=== PATIENT | male | born 1965 | race Caucasian/White ===

== ENCOUNTER 2019-09-18 20:27 | Observation (INO) | payer OTHER, MEDICAID, SELFPAY ==
[2019-09-18 20:30] VITALS: BP 140/91; PULSE 93; RESP 16; TEMP 36.7; O2SAT 99; BMI 21.2
--- NOTE | 2019-09-18 20:47 | DI.RAD.S_ITS ---
PROCEDURE: XR ACUTE ABDOMEN SERIES INDICATIONS: Abdominal pain TECHNIQUE: One view chest and two views of the abdomen were acquired. COMPARISON: None. FINDINGS: Surgical changes and devices: None. Chest: Patchy ill-defined retrocardiac opacity. Scattered scarring/atelectasis. Heart size is normal. No pleural effusions. No pneumoperitoneum. Abdomen: Bowel gas pattern is normal. No suspicious calcifications. Visualized solid organ contours appear normal. Bones: No suspicious bony lesions. IMPRESSION: Retrocardiac mild opacity, potentially aspiration versus pneumonia although technically age-indeterminate. If there is persistent clinical diagnostic uncertainty, continued surveillance with short interval chest radiographs after treatment is recommended. No bowel obstruction or free air Dictated by: Paolo Buitrago M.D. on 09/18/2019 at 21:45 Approved by: Paolo Buitrago M.D. on 09/18/2019 at 21:48
[2019-09-18] MEDS: ONDANSETRON 4 MG/2 ML INJ IV (20:59)
[2019-09-18] MEDS: PANTOPRAZOLE 40 MG VIAL IV (20:59)
[2019-09-18 21:37] LABS: INR 1.1 (0.9-1.3); Prothrombin Time 12.6 SECONDS (10.1-12.7)
[2019-09-18 21:38] LABS: Add Manual Diff / Slide Review NO; Basophils Absolute Auto 200 /uL (0-100); Basophils Percent Auto 2.5 % (0-2); Eosinophils Absolute Auto 0 /uL (0-450); Eosinophils Percent Auto 0.3 % (2-4); Hematocrit 45.6 % (41-53); Hemoglobin 15.9 g/dL (13.5-17.5); Lymphocytes Absolute Auto 700 /uL (1100-4500); Lymphocytes Percent Auto 7.9 % (25-40); Mean Corpuscular HGB Conc 34.9 % (30-36); Mean Corpuscular Volume 88.8 fL (80-100); Monocytes Absolute Auto 900 /uL (0-900); Monocytes Percent Auto 9.6 % (3-14); Neutrophils Absolute Auto 7400 /uL (1500-7000); Neutrophils Percent Auto 79.7 % (50-75); Platelet Count 209 X10^3/uL (150-400); Red Blood Cell Count 5.14 X10^6/uL (4.5-5.9); Red Cell Distribution Width 13.2 % (11.6-14.8); White Blood Cell Count 9.3 X10^3/uL (4.5-11.0)
[2019-09-18 21:40] LABS: PTT Partial Thromboplastin Tim 33 SECONDS (26.4-36.2)
[2019-09-18 21:42] LABS: Alanine Aminotransferase 29 IU/L (<50); Albumin 4.4 g/dL (3.5-5.0); Albumin Globulin Ratio 1.3 (1.0-2.8); Alkaline Phosphatase 87 U/L (38-126); Aspartate Aminotransferase 32 IU/L (17-59); BUN Creatinine Ratio 23.8 (6-22); Bilirubin Total 0.6 mg/dL (0.2-1.3); Blood Urea Nitrogen 19 mg/dL (9-20); Calcium 9.1 mg/dL (8.4-10.2); Carbon Dioxide 30 mmol/L (22-32); Chloride 97 mmol/L (98-107); Estimated Glomerular Filt Rate > 60.0 mL/min (>60); Globulin 3.5 g/dL (1.7-4.1); Glucose 136 mg/dL (70-100); HEMOLYSIS < 15 (0-50); Potassium 3.6 mmol/L (3.4-5.1); Sodium 138 mmol/L (137-145); Total Protein 7.9 g/dL (6.3-8.2)
--- NOTE | 2019-09-18 21:56 | ED_ITS ---
HPI - Nausea/Vomiting/Diarrhea General Chief complaint: Nausea/Vomiting/Diarrhea Stated complaint: dry heaves for days Time Seen by Provider: 09/18/19 20:30 Source: patient Mode of arrival: Ambulatory Limitations: no limitations History of Present Illness HPI Narrative: 54-year-old male smoker with extensive alcohol history presents with a chief complaint of some epigastric discomfort and persistent nausea and vomiting for the past 5 days or so. Additionally he has had dark and tarry stool. He denies any history of GI bleed and hasn't been drinking for the past 5 years. He denies the use of any blood thinners or even aspirin. He is not dizzy, weak or lightheaded. He denies any blood in his vomit. He denies any history of alcohol withdrawal or admissions for gastrointestinal bleed. He has never had or colonoscopy. MD complaint: nausea, vomiting and diarrhea Onset (ago): day(s) Description of Vomiting: food contents Description of Diarrhea: tarry Related Data Home Medications Medication Instructions Recorded Confirmed No Known Home Medications 09/18/19 09/18/19 Allergies Allergy/AdvReac Type Severity Reaction Status Date / Time No Known Drug Allergies Allergy Verified 04/28/19 14:28 Patient History Medical History (Updated 09/19/19 @ 01:56 by KAREEM King) Migraine headache (Acute) Surgical History No history of previous surgery (Acute) Family History (Updated 09/19/19 @ 01:52 by KAREEM King) Father Cancer Heart disease Mother Diabetes mellitus Social History household members: family Smoking Status: Former smoker alcohol intake: never Smoking Status: Current every day smoker Substance Use Type: does not use Exam Narrative Exam Narrative: GENERAL: [54] year old patient appears stated age. Well- nourished, well-developed patient, in mild distress. HEAD: Atraumatic. Normocephalic. EYES: Pupils equal round and reactive. Extraocular motions intact. No scleral icterus. No injection or drainage. ENT: Nose without bleeding, purulent drainage. Throat without erythema, tonsillar hypertrophy or exudate. Airway patent. NECK: Trachea midline. Non tender CARDIOVASCULAR: Regular rate and rhythm without murmurs, gallops, or rubs. RESPIRATORY: Clear to auscultation. Breath sounds equal bilaterally. No wheezes, rales, or rhonchi. GASTROINTESTINAL: Abdomen soft, mild epigastric tenderness, nondistended. RECTAL: No pain, heme+ EXTREMITIES: No edema or joint tenderness. BACK: Nontender without deformity or crepitance. No flank tenderness. NEURO: AOx3. SKIN: No rash or erythema of visible areas Initial Vital Signs Initial Vital Signs: Vital Signs Temperature 98.1 F 09/18/19 20:30 Pulse Rate 93 H 09/18/19 20:30 Respiratory Rate 16 09/18/19 20:30 Blood Pressure 140/91 H 09/18/19 20:30 Pulse Oximetry 99 09/18/19 20:30 Course Orders Ordered: ED Orders 09/18/19 20:47 XR acute abdomen series Stat 09/18/19 21:15 Complete Blood Count AUTO DIFF Stat Comprehensive Metabolic Panel Stat Lipase Stat Partial Thromboplastin Time Stat Prothrombin Time INR Stat Troponin & CK Cardiac Panel Stat Type and Screen Stat 09/18/19 22:19 EKG-12 Lead Stat Acetaminophen (Tylenol) 650 mg PO Q6HR PRN PRN Reason: Fever/Mild Pain (1-3) Last Admin: 09/19/19 00:36 Dose: 650 mg Documented by: GEORGETTE Sodium Chloride (Normal Saline 0.9%) 1,000 mls @ 150 mls/hr IV CONT BRITANY Last Admin: 09/19/19 00:34 Dose: 150 mls/hr Documented by: GEORGETTE Influenza Virus Vaccine (Flu Vaccine) 0.5 ml IM .ONCE ONE Stop: 09/19/19 09:01 Naloxone HCl (Narcan) 0.2 mg IV Q2MIN PRN PRN Reason: Opiate Reversal Ondansetron HCl (Zofran) 4 mg IV Q6HR [facility] Last Admin: 09/19/19 00:12 Dose: 4 mg Documented by: BRYANNA Pantoprazole Sodium (Protonix) 40 mg PO BID BRITANY Discontinued Medications Ondansetron HCl (Zofran) 4 mg IV NOW ONE Stop: 09/18/19 20:47 Last Admin: 09/18/19 20:59 Dose: 4 mg Documented by: GLADIS Pantoprazole Sodium (Protonix) 40 mg IV NOW ONE Stop: 09/18/19 20:47 Last Admin: 09/18/19 20:59 Dose: 40 mg Documented by: GLADIS Reevaluation(s) Reevaluation #1: patient feeling a bit better after the above stated therapies, but will need admission for further evaluation of upper GI bleed Consultations Consultation #1: Dr. Howard called to discuss his level of comfort given presumed upper source of bleeding. He is available in consult should hospitalist service wish it Consultation #2: hospitalist happy to accept Vital Signs Vital signs: Vital Signs - 8 hr 09/18/19 20:30 Temperature 98.1 F Pulse Rate 93 H Respiratory Rate 16 Blood Pressure 140/91 H Pulse Oximetry 99 MDM - Nausea/Vomiting/Diarrhea Lab Data Result diagrams: 09/18/19 21:15 09/18/19 21:15 Labs: Lab Results 09/18/19 09/18/19 09/18/19 Range/Units 21:15 21:15 21:15 WBC 9.3 (4.5-11.0) X10^3/uL RBC 5.14 (4.5-5.9) X10^6/uL Hgb 15.9 (13.5-17.5) g/dL Hct 45.6 (41-53) % MCV 88.8 (80-100) fL MCH 31.0 (26-34) PG MCHC 34.9 (30-36) % RDW 13.2 (11.6-14.8) % Plt Count 209 (150-400) X10^3/uL Neut % (Auto) 79.7 H (50-75) % Lymph % (Auto) 7.9 L (25-40) % [place] % (Auto) 9.6 (3-14) % Eos % (Auto) 0.3 L (2-4) % Baso % (Auto) 2.5 H (0-2) % Neut # (Auto) 7400 H (1286-5349) /uL Lymph # (Auto) 700 L (1855-5898) /uL [place] # (Auto) 900 (0-900) /uL Eos # (Auto) 0 (0-450) /uL Baso # (Auto) 200 H (0-100) /uL PT 12.6 (10.1-12.7) SECONDS INR 1.1 (0.9-1.3) APTT 33 (26.4-36.2) SECONDS Sodium 138 (137-145) mmol/L Potassium 3.6 (3.4-5.1) mmol/L Chloride 97 L (98-107) mmol/L Carbon Dioxide 30 (22-32) mmol/L BUN 19 (9-20) mg/dL Creatinine 0.80 (0.66-1.25) mg/dL Estimated GFR > 60.0 (>60) mL/min BUN/Creatinine Ratio 23.8 H (6-22) Glucose 136 H (70-100) mg/dL Calcium 9.1 (8.4-10.2) mg/dL Magnesium (1.6-2.3) mg/dL Total Bilirubin 0.6 (0.2-1.3) mg/dL AST 32 (17-59) IU/L ALT 29 (<50) IU/L Alkaline Phosphatase 87 (38-126) U/L Total Creatine Kinase (55-170) U/L CK-MB (CK-2) CK-MB (CK-2) Rel Index Troponin I (0.01-0.034) ng/mL Total Protein 7.9 (6.3-8.2) g/dL Albumin 4.4 (3.5-5.0) g/dL Globulin 3.5 (1.7-4.1) g/dL Albumin/Globulin Ratio 1.3 (1.0-2.8) Lipase (23-300) U/L Blood Type Antibody Screen 09/18/19 09/18/19 09/18/19 Range/Units 21:15 21:15 21:15 WBC (4.5-11.0) X10^3/uL RBC (4.5-5.9) X10^6/uL Hgb (13.5-17.5) g/dL Hct (41-53) % MCV (80-100) fL MCH (26-34) PG MCHC (30-36) % RDW (11.6-14.8) % Plt Count (150-400) X10^3/uL Neut % (Auto) (50-75) % Lymph % (Auto) (25-40) % [place] % (Auto) (3-14) % Eos % (Auto) (2-4) % Baso % (Auto) (0-2) % Neut # (Auto) (6612-1585) /uL Lymph # (Auto) (9728-3738) /uL [place] # (Auto) (0-900) /uL Eos # (Auto) (0-450) /uL Baso # (Auto) (0-100) /uL PT (10.1-12.7) SECONDS INR (0.9-1.3) APTT (26.4-36.2) SECONDS Sodium (137-145) mmol/L Potassium (3.4-5.1) mmol/L Chloride (98-107) mmol/L Carbon Dioxide (22-32) mmol/L BUN (9-20) mg/dL Creatinine (0.66-1.25) mg/dL Estimated GFR (>60) mL/min BUN/Creatinine Ratio (6-22) Glucose (70-100) mg/dL Calcium (8.4-10.2) mg/dL Magnesium (1.6-2.3) mg/dL Total Bilirubin (0.2-1.3) mg/dL AST (17-59) IU/L ALT (<50) IU/L Alkaline Phosphatase (38-126) U/L Total Creatine Kinase 50 L (55-170) U/L CK-MB (CK-2) TNP CK-MB (CK-2) Rel Index TNP Troponin I < 0.012 (0.01-0.034) ng/mL Total Protein (6.3-8.2) g/dL Albumin (3.5-5.0) g/dL Globulin (1.7-4.1) g/dL Albumin/Globulin Ratio (1.0-2.8) Lipase 59 (23-300) U/L Blood Type O Positive Antibody Screen Negative 09/18/19 Range/Units 21:15 WBC (4.5-11.0) X10^3/uL RBC (4.5-5.9) X10^6/uL Hgb (13.5-17.5) g/dL Hct (41-53) % MCV (80-100) fL MCH (26-34) PG MCHC (30-36) % RDW (11.6-14.8) % Plt Count (150-400) X10^3/uL Neut % (Auto) (50-75) % Lymph % (Auto) (25-40) % [place] % (Auto) (3-14) % Eos % (Auto) (2-4) % Baso % (Auto) (0-2) % Neut # (Auto) (4856-3870) /uL Lymph # (Auto) (8232-2467) /uL [place] # (Auto) (0-900) /uL Eos # (Auto) (0-450) /uL Baso # (Auto) (0-100) /uL PT (10.1-12.7) SECONDS INR (0.9-1.3) APTT (26.4-36.2) SECONDS Sodium (137-145) mmol/L Potassium (3.4-5.1) mmol/L Chloride (98-107) mmol/L Carbon Dioxide (22-32) mmol/L BUN (9-20) mg/dL Creatinine (0.66-1.25) mg/dL Estimated GFR (>60) mL/min BUN/Creatinine Ratio (6-22) Glucose (70-100) mg/dL Calcium (8.4-10.2) mg/dL Magnesium 2.6 H (1.6-2.3) mg/dL Total Bilirubin (0.2-1.3) mg/dL AST (17-59) IU/L ALT (<50) IU/L Alkaline Phosphatase (38-126) U/L Total Creatine Kinase (55-170) U/L CK-MB (CK-2) CK-MB (CK-2) Rel Index Troponin I (0.01-0.034) ng/mL Total Protein (6.3-8.2) g/dL Albumin (3.5-5.0) g/dL Globulin (1.7-4.1) g/dL Albumin/Globulin Ratio (1.0-2.8) Lipase (23-300) U/L Blood Type Antibody Screen Imaging Data Abdominal x-ray: Radiologist's Impression: [address] [address] XRay Report Signed Patient: Jas BentonKe#: [id number] : 1965Acct:[id number] Age/Sex: 54 / MDate of Service: 09/18/19 Loc: ED Accession Number: [id number] Procedure: XR acute abdomen series Ordering Provider: Eagle White D.O. PROCEDURE: XR ACUTE ABDOMEN SERIES INDICATIONS: Abdominal pain TECHNIQUE: One view chest and two views of the abdomen were acquired. COMPARISON: None. FINDINGS: Surgical changes and devices: None. Chest: Patchy ill-defined retrocardiac opacity. Scattered scarring/atelectasis. Heart size is normal. No pleural effusions. No pneumoperitoneum. Abdomen: Bowel gas pattern is normal. No suspicious calcifications. Visualized solid organ contours appear normal. Bones: No suspicious bony lesions. IMPRESSION: Retrocardiac mild opacity, potentially aspiration versus pneumonia although technically age-indeterminate. If there is persistent clinical diagnostic uncertainty, continued surveillance with short interval chest radiographs after treatment is recommended. No bowel obstruction or free air Dictated by: Paolo Buitrago M.D. on 09/18/2019 at 21:45 Approved by: Paolo Buitrago M.D. on 09/18/2019 at 21:48 Discharge Plan Departure Patient Disposition: Admitted As Inpatient Clinical Impression: GI bleed Qualifiers: GI bleed type/associated pathology: unspecified gastrointestinal hemorrhage type Qualified Code(s): K92.2 - Gastrointestinal hemorrhage, unspecified Discharge Date/Time: 09/19/19 00:20 Admit Date/Time: 09/18/19 22:54 Admit Provider: Brandon Lobo
[2019-09-18 22:31] LABS: Creatine Kinase 50 U/L (55-170)
[2019-09-18 22:42] LABS: Troponin I < 0.012 ng/mL (0.01-0.034)
[2019-09-18 23:06] LABS: Lipase 59 U/L (23-300)
[2019-09-18 23:30] VITALS: BP 128/84; PULSE 88; RESP 12; O2SAT 96
[2019-09-18 23:37] VITALS: BP 128/84; PULSE 87; RESP 12; O2SAT 98
--- NOTE | 2019-09-18 23:53 | P.HP_ITS ---
History of Present Illness History of Present Illness Date Patient Seen: 09/18/19 Time Patient Seen: 23:09 Chief complaint: dry heaves for days Narrative: Mr. Jas Benton is a 54-year-old male patient with a remote history of high alcohol intake but no other current medical problems who presents to the ER with intractable nausea vomiting. The patient states his symptoms began 6 days ago with nausea vomiting, epigastric pain, fevers and chills. The patient's symptoms persisted developing melena for the last couple of days. He states he has been unable to keep any fluid or food down. He has associated headache, nasal congestion and reports sore throat. He has had no hematemesis or coffee-ground emesis does report having melanotic stools. He describes his pain as burning epigastrium without radiation at 4/10 that worsens to 7/10 with vomiting. He describes symptoms worsening when he lays flat and what sounds to be possible esophageal spasms. The patient indicates his brothers are also ill with similar symptoms. The patient denies chest pain or palpitations and has no shortness of breath cough or wheezing. He reports no diarrhea but has not eaten much and has small black stools. Reports no urinary symptoms and has nocturia approximately 1 time nightly. He is fully independent in his ADLs requires no assistive devices. Upon arrival to the ER the patient has a temperature of 98.1?, heart rate 93, blood pressure 140/91, respirations 16 saturating 99% on room air. A chest x- ray is obtained which did advise retrocardiac mild opacity is questionable for pneumonia versus possible aspiration. On laboratory analysis the patient has a normal white count at 9.3, hemoglobin of 15.9, hematocrit of 45.6 and platelets 209. He has an MCV of 88. On coagulation has a PT of 12.6 with an INR 1.1 and PTT of 33. His chemistries revealed normal electrolytes with a BUN of 19 and creatinine of 0.8. His magnesium is 2.6. He has a bilirubin of 0.6, AST of 32, ALT of 29 and alkaline phosphatase of 87. His nonfasting glucose is 136. He has negative troponin at less than 0.012. A type and screen is obtained. Dr. Howard is contacted through the ER and has agreed to consult. The patient is admitted to the medicine service for intractable nausea vomiting with likely gastritis and gastrointestinal bleeding. Patient History Medical History (Updated 09/19/19 @ 01:56 by KAREEM King) Migraine headache (Acute) Surgical History No history of previous surgery (Acute) Family & Social History Family History (Updated 09/19/19 @ 01:52 by KAREEM King) Father Cancer Heart disease Mother Diabetes mellitus Safety & Behavioral: Feels Safe in Current Yes Environment Been Physically Hurt or No Threatened By a Person Tobacco & Substance use: Smoking Status Current every day smoker Substance Use Type does not use Comment: The patient is single and lives in a single family home. He reports that his father just recently passed related to heart disease has a history of prostate cancer. His mother has a history of diabetes. He has 3 brothers and 2 sisters all of whom he describes is in good health. Occupation: Patient works with horses. Smoking: Patient states he quit smoking 5 years ago before which he smoked 1 pack per day. Alcohol: Patient reports high alcohol intake with over a 6 pack per day in the past quitting 5 years ago. Substance use: Patient denies using recreational pharmaceuticals, herbal or cannabis products. Advanced directives: The patient states iron to be FULL CODE. He designates his younger brother Yamileth Benton to be his surrogate decision maker. Meds Home Medications and Allergies Home Medications Medication Instructions Recorded Confirmed Type No Known Home Medications 09/18/19 09/18/19 History Allergies Allergy/AdvReac Type Severity Reaction Status Date / Time No Known Drug Allergies Allergy Verified 04/28/19 14:28 Review of Systems Review of Systems Narrative: All systems are reviewed and are unremarkable except those noted in the HPI above. Exam Vital Signs (past 8 hours): - 09/18/19 20:30 09/18/19 23:30 09/18/19 23:37 Temperature 98.1 F Pulse Rate 93 H 88 87 Respiratory Rate 16 12 12 Blood Pressure 140/91 H Blood Pressure [Left Arm] 128/84 Blood Pressure [Right Arm] 128/84 Pulse Oximetry 99 96 98 Oxygen Delivery Method Room Air Narrative Exam Narrative: GENERAL APPEARANCE: well developed, adequately nourished somewhat unkempt male mildly uncomfortable appearing. HEENT: Normocephalic, PERRLA, conjunctiva clear, EOMs intact without nystagmus, slight sinus tenderness to percussion, no rhinorrhea, mucous membranes are dry and pink without lesions or exudate. NECK/THYROID: neck supple, no JVD, no carotid bruit, no thyromegaly, trachea midline. LYMPH NODES: no cervical or supraclavicular lymphadenopathy. SKIN: [place], warm and dry, no visible lesions, rashes, ulcerations or petechiae. HEART: regular rate and rhythm, S1-S2, faint murmur left midsternal border, no rubs or gallops, brisk capillary refill, no edema LUNGS: clear to auscultation bilaterally, no coarseness crackles or wheezing, no cough present CHEST: Symmetrical movement, no accessory muscle use, good tidal volume. ABDOMEN: Soft, no distention, attempting to progression bilateral upper quadrants, epigastric abdominal tenderness, no guarding or peritoneal signs, no organomegaly, no flank or suprapubic tenderness, active bowel tones. BACK: Normal curvature, nontender to palpation, no CVA tenderness on percussion EXTREMITIES: moves all extremities, strength is 5/5 and symmetrical, no deformities or joint effusions. NEUROLOGIC: AAO x4, no focal neurologic deficits, cranial nerves II-XII grossly intact, sensation intact to light touch, hearing grossly normal to speech. PSYCH: Mildly anxious, cooperative, congruent mood and affect. Objective Labs Result Diagrams: 09/18/19 21:15 09/18/19 21:15 Labs: Laboratory Results - last 24 hr 09/18/19 09/18/19 09/18/19 21:15 21:15 21:15 WBC 9.3 RBC 5.14 Hgb 15.9 Hct 45.6 MCV 88.8 MCH 31.0 MCHC 34.9 RDW 13.2 Plt Count 209 Neut % (Auto) 79.7 H Lymph % (Auto) 7.9 L [place] % (Auto) 9.6 Eos % (Auto) 0.3 L Baso % (Auto) 2.5 H Neut # (Auto) 7400 H Lymph # (Auto) 700 L [place] # (Auto) 900 Eos # (Auto) 0 Baso # (Auto) 200 H PT 12.6 INR 1.1 APTT 33 Sodium 138 Potassium 3.6 Chloride 97 L Carbon Dioxide 30 BUN 19 Creatinine 0.80 Estimated GFR > 60.0 BUN/Creatinine Ratio 23.8 H Glucose 136 H Calcium 9.1 Total Bilirubin 0.6 AST 32 ALT 29 Alkaline Phosphatase 87 Total Creatine Kinase CK-MB (CK-2) CK-MB (CK-2) Rel Index Troponin I Total Protein 7.9 Albumin 4.4 Globulin 3.5 Albumin/Globulin Ratio 1.3 Lipase Blood Type Antibody Screen 09/18/19 09/18/19 09/18/19 21:15 21:15 21:15 WBC RBC Hgb Hct MCV MCH MCHC RDW Plt Count Neut % (Auto) Lymph % (Auto) [place] % (Auto) Eos % (Auto) Baso % (Auto) Neut # (Auto) Lymph # (Auto) [place] # (Auto) Eos # (Auto) Baso # (Auto) PT INR APTT Sodium Potassium Chloride Carbon Dioxide BUN Creatinine Estimated GFR BUN/Creatinine Ratio Glucose Calcium Total Bilirubin AST ALT Alkaline Phosphatase Total Creatine Kinase 50 L CK-MB (CK-2) TNP CK-MB (CK-2) Rel Index TNP Troponin I < 0.012 Total Protein Albumin Globulin Albumin/Globulin Ratio Lipase 59 Blood Type O Positive Antibody Screen Negative Assessment & Plan Assessment & Plan narrative: This is a 54-year-old male patient who was admitted to the hospital for intractable nausea vomiting, dehydration and GI bleeding. 1. Intractable nausea vomiting, acute, present on admission, active -patient with 6 days of nausea vomiting stating unable to keep food or water down. No hematemesis or coffee-ground emesis per patient report. -sick contacts in the family with brothers having similar symptoms. -bleed to be infectious etiology, respiratory panel will be obtained. -Zofran 4 mg every 6 hours as needed for nausea. -the patient given oral fluids in the ED resulting in nausea, NPO for now with sips and chips, advance diet to clear liquid diet in the morning. 2. Dehydration, acute, present on admission, active -the patient reports poor oral intake for the last 6 days. -patient appears hemoconcentrated with a hemoglobin of 15.9 hematocrit 45.6, BUN creatinine ratio is 23.8 consistent with dehydration. No evidence of acid-base derangement, anion gap is 11. -rehydrate with normal saline 150 cc/hour. -will follow chemistries and renal function. 3. Gastritis, acute, present on admission, active -patient complains of ongoing epigastric discomfort described as a burning with associated reflux symptoms including what sounds to be esophageal spasm. -no complaints of hematemesis or coffee-ground emesis, 2-3 days of melanotic stool. -symptoms are worse when lying down, will keep head of bed elevated 15?. -Protonix 40 mg IV twice daily. -Zofran as needed for nausea -NPO tonight will start clear liquid diet in the morning. 4. GI bleed with melanotic stool, acute, present on admission, active -patient reports melanotic stools for 2-3 days. Patient has heme-positive on rectal exam in the ER. -patient denies hematochezia or bright red blood per rectum. -hemoglobin is 15.9 and hematocrit is 45.6 with platelets of 209. BUN is normal at 0.6. MCV is 88. -prior history of heavy alcohol intake, quit 5 years ago per patient report. -he reports no previous GI bleed. He has never had colonoscopy or endoscopy. -Dr. Howard has agreed to consult and we appreciate his evaluation recommendations. 5. Migraine headache, acute, present on admission, active. -patient is requesting Excedrin for his headache. Will avoid aspirin and NSAIDs due to GI bleed. -ordered Tylenol for headache as needed. Will assess efficacy. VTE prophylaxis: Bilateral SCDs, no anticoagulation due to GI bleeding. Diet: NPO tonight, clear liquids in the morning will plan to advance as tolerated. IVF: normal saline 150 cc/hour. The patient is admitted to the hospital due to the severity of symptoms, risk of complications adverse events. The patient is admitted as observation with expected length of stay to be less than 2 midnights. Scores GCS Kelley coma scale eye opening: Spontaneous Kelley coma scale verbal response: Orientated [place] coma scale motor response: Obey commands [place] coma scale total score: 15
[2019-09-19] VITALS (12 sets, daily range): BP systolic 88–139; BP diastolic 63–84; PULSE 62–87; RESP 11–27; TEMP 36.6–37.8; O2SAT 91–99; BMI 21.2
--- NOTE | 2019-09-19 | PATH_ITS ---
[facility] Accession Number: [id number] . 01 Material submitted: . PART A: stomach - GASTRIC BIOPSIES PART B: esophagus - ESOPHAGEAL BIOPSIES . 02 Diagnosis: A. Stomach, Biopsies: Acute erosive gastritis. Negative for Helicobacter by immuohistochemistry. Negative for intestinal metaplasia. Negative for dysplasia and malignancy. . B. Esophagus, Biopsies: Ulcerated squamous mucosa. A PAS stain is negative for fungal organisms. Intraepithelial eosinophils are not increased. Negative for dysplasia and malignancy. V 09/22/2019 1449 Local . 02 Electronically signed: . Altagracia Mahmood MD, Pathologist NPI- [id number] . 01 Gross description: . Part A: GASTRIC BIOPSIES: Received in formalin are multiple fragment(s) of carlin, soft tissue measuring 0.6 x 0.3 x 0.1 cm in aggregate submitted entirely in 1 cassette(s) Part B: ESOPHAGEAL BIOPSIES: Received in formalin are multiple fragment(s) of carlin, soft tissue measuring 0.4 x 0.4 x 0.1 cm in aggregate submitted entirely in 1 cassette(s) /QBJ 09/20/2019 0558 Local . 02 Microscopic: . A. An immunohistochemical stain was performed to evaluate for Helicobacter organisms and is negative. The control stain showed appropriate reactivity. . B. An AB/PAS stain was performed to evaluate for fungal organisms and is negative. The control stain showed appropriate reactivity. . * This test was developed and its performance characteristics determined by [employer]. It has not been cleared or approved by the U.S. Food and Drug Administration. The FDA has determined that such clearance or approval is not necessary. This test is used for clinical purposes. It should not be regarded as investigational or for research. . 02 Pathologist provided ICD-10: K20.9, K25.9 . 02 CPT . 739743, 326293, 488555, B20891 Performed at: 01 [facility] [address] [id number] MD Julito Bagley MD Phone: [phone] Performed at: 02 [facility] [address] [place], [place] [id number] MD Altagracia Mahmood MD Phone: [phone]
[2019-09-19 00:06] LABS: Magnesium 2.6 mg/dL (1.6-2.3)
[2019-09-19] MEDS: ONDANSETRON 4 MG/2 ML INJ IV ×4 (00:12→22:47)
[2019-09-19] MEDS: SODIUM CHLORIDE 0.9% 1,000 ML 150 ML IV ×2 (00:34→03:23)
[2019-09-19] MEDS: ACETAMINOPHEN 325 MG TABLET 650 MG PO ×2 (00:36→12:03)
--- NOTE | 2019-09-19 01:10 | PC.ADMIT ---
[address] Admission Note: Pt arrived to unit at 1230 without issues. Pt has no complaints at this time. Reports after recieving the zofran he has not had anymore n/v. Alert and oriented x4. SBA to bed. Pt reports 1/3 headache pain. Tylenol given. Pt also requests excedrin. Temp 100.1, pt reports feeling fine. Tylenol given WCTM. Skin assessment done with DESIREE Bui. Pt reports not wanting to recieve blood products, will report this to Yamil SERNA. The patient,Jas Benton,54 y/o, was given written information regarding hospital policies, unit procedures and contact persons. Patient's smoking status: Former smoker. Vital Signs - 8 hr 09/18/19 20:30 09/18/19 23:30 09/18/19 23:37 Temperature 98.1 F Pulse Rate 93 H 88 87 Respiratory Rate 16 12 12 Blood Pressure 140/91 H Blood Pressure [Left Arm] 128/84 Blood Pressure [Right Arm] 128/84 Pulse Oximetry 99 96 98 09/19/19 00:30 Temperature 100.1 F H Pulse Rate 82 Respiratory Rate 18 Blood Pressure 130/77 Blood Pressure [Left Arm] Blood Pressure [Right Arm] Pulse Oximetry 99
[2019-09-19 01:37] LABS: Adenovirus Detected (Not Detect); Bordetella pertussis Not Detected (Not Detect); Chlamydophila pneumoniae Not Detected (Not Detect); Coronavirus 229E Not Detected (Not Detect); Coronavirus HKU1 Not Detected (Not Detect); Coronavirus NL 63 Not Detected (Not Detect); Coronavirus OC43 Not Detected (Not Detect); Human Metapneumovirus Not Detected (Not Detect); Human Rhinovirus/Enterovirus Not Detected (Not Detect); Influenza A Not Detected (Not Detect); Influenza B Not Detected (Not Detect); Mycoplasma pneumoniae Not Detected (Not Detect); Parainfluenza Virus 1 Not Detected (Not Detect); Parainfluenza Virus 2 Not Detected (Not Detect); Parainfluenza Virus 3 Not Detected (Not Detect); Parainfluenza Virus 4 Not Detected (Not Detect); Respiratory Syncytial Virus Not Detected (Not Detect)
[2019-09-19] MEDS: BENZOCAINE/MENTHOL 1 LOZ PKT 1 EACH PO ×3 (06:19→12:03)
[2019-09-19 07:05] LABS: Add Manual Diff / Slide Review NO; Basophils Absolute Auto 0 /uL (0-100); Basophils Percent Auto 0.6 % (0-2); Eosinophils Absolute Auto 0 /uL (0-450); Eosinophils Percent Auto 0.3 % (2-4); Hematocrit 41.4 % (41-53); Hemoglobin 14.5 g/dL (13.5-17.5); Lymphocytes Absolute Auto 1000 /uL (1100-4500); Lymphocytes Percent Auto 13.8 % (25-40); Mean Corpuscular HGB Conc 34.9 % (30-36); Mean Corpuscular Volume 88.7 fL (80-100); Monocytes Absolute Auto 1000 /uL (0-900); Monocytes Percent Auto 14.1 % (3-14); Neutrophils Absolute Auto 5000 /uL (1500-7000); Neutrophils Percent Auto 71.2 % (50-75); Platelet Count 211 X10^3/uL (150-400); Red Blood Cell Count 4.67 X10^6/uL (4.5-5.9); Red Cell Distribution Width 12.9 % (11.6-14.8)
[2019-09-19 07:39] LABS: BUN Creatinine Ratio 22.5 (6-22); Blood Urea Nitrogen 18 mg/dL (9-20); Calcium 8.6 mg/dL (8.4-10.2); Carbon Dioxide 30 mmol/L (22-32); Chloride 99 mmol/L (98-107); Estimated Glomerular Filt Rate > 60.0 mL/min (>60); Glucose 138 mg/dL (70-100); HEMOLYSIS < 15 (0-50); Potassium 3.7 mmol/L (3.4-5.1); Sodium 139 mmol/L (137-145)
[2019-09-19] MEDS: INFLUENZA VACCINE 0.5 ML SYRINGE IM (09:24)
[2019-09-19] MEDS: PANTOPRAZOLE 20 MG TABLET 40 MG PO ×2 (09:25→21:35)
--- NOTE | 2019-09-19 15:38 | PC.NURSE ---
Addendum entered by Marija Hauser R.N. 09/19/19 22:59: Since back from EGD patient has been dozing occasionally, denies abdomen pain. Does report sore throat & intermittent nausea. The EGD transfer orders from Dr Howard included discontinue of IV Zofran. I notified Dr Michel of nausea tonight, new order given for Zofran 4 mg IV PRN. Upon court orderly, there was a severe warning that popped up asking me to override, saying that interaction with clarithromycin could cause prolonged QT interval. I then went to the medical physician Fransisca SERNA to notify about this warning, she asked for the patient's EKG from ER admission. Copy of EKG presented to Fransisca. She said I think it will be fine to give this medication. I then entered the Zofran order, med now administered as patient still c/o nausea and said I thought for a minute I was going to throw up. Denies other needs tonight. Instructed him to call nurse for any needs/concerns or if needs OOB. Original Note: At 1530 patient taken down for EGD. IV SL'd.
[2019-09-19] MEDS: LACTATED RINGERS 1,000 ML 42 ML IV (15:46)
--- NOTE | 2019-09-19 15:59 | PM.CN ---
History of Present Illness Consult details Date Patient Seen: 09/19/19 Time Patient Seen: 13:11 Chief complaint: dry heaves for days Reason for consult: GI bleed Requesting provider: [facility] Narrative: The patient is a gentleman who has been sick for 6 days with nausea vomiting. He denied diarrhea. He developed black stool the last a no was asked to see him regarding an EGD. Patient has a distant history of alcohol abuse. He hasn't drunk for 5 months. Meds Home Medications and Allergies Home Medications Medication Instructions Recorded Confirmed Type No Known Home Medications 09/18/19 09/18/19 History Allergies Allergy/AdvReac Type Severity Reaction Status Date / Time No Known Drug Allergies Allergy Verified 04/28/19 14:28 Review of Systems Review of Systems Narrative: No heart problems. He has been having a persistent cough. He has been complaining of some epigastric vague discomfort. It causes him to have nausea. No seizures or blackouts. Exam Vital Signs (past 8 hours): - 09/19/19 08:00 09/19/19 11:43 09/19/19 15:49 Temperature 98.6 F 98.9 F 99.7 F H Pulse Rate 78 84 62 Respiratory Rate 16 16 16 Blood Pressure 111/72 119/74 104/72 Pulse Oximetry 95 96 95 Oxygen Delivery Method Room Air Oxygen Flow Rate 0 Narrative Exam Narrative: Pleasant cooperative patient no apparent distress. Lungs are clear to auscultation. No rales or rhonchi. Heart regular rate and rhythm no murmur gallop. Abdomen is soft nontender without mass. No obvious hernias. Patient is alert and oriented x3. Objective Labs Result Diagrams: 09/19/19 06:55 09/19/19 06:55 Labs: Laboratory Results - last 24 hr 09/18/19 09/18/19 09/18/19 21:15 21:15 21:15 WBC 9.3 RBC 5.14 Hgb 15.9 Hct 45.6 MCV 88.8 MCH 31.0 MCHC 34.9 RDW 13.2 Plt Count 209 Neut % (Auto) 79.7 H Lymph % (Auto) 7.9 L [place] % (Auto) 9.6 Eos % (Auto) 0.3 L Baso % (Auto) 2.5 H Neut # (Auto) 7400 H Lymph # (Auto) 700 L [place] # (Auto) 900 Eos # (Auto) 0 Baso # (Auto) 200 H PT 12.6 INR 1.1 APTT 33 Sodium 138 Potassium 3.6 Chloride 97 L Carbon Dioxide 30 BUN 19 Creatinine 0.80 Estimated GFR > 60.0 BUN/Creatinine Ratio 23.8 H Glucose 136 H Calcium 9.1 Magnesium Total Bilirubin 0.6 AST 32 ALT 29 Alkaline Phosphatase 87 Total Creatine Kinase CK-MB (CK-2) CK-MB (CK-2) Rel Index Troponin I Total Protein 7.9 Albumin 4.4 Globulin 3.5 Albumin/Globulin Ratio 1.3 Lipase Chlamy pneumoniae PCR Adenovirus (PCR) B.parapertussis DNA PCR Coronavirus OC43 (PCR) Coronavirus HKU1 (PCR) Coronavirus 229E (PCR) Coronavirus NL63 (PCR) Human Metapneumovir PCR Influenza Type A (PCR) Influenza Type B (PCR) M. pneumoniae (PCR) Parainfluenza 1 (PCR) Parainfluenza 2 (PCR) Parainfluenza 3 (PCR) Parainfluenza 4 (PCR) RSV (PCR) Entero/Rhino (PCR) Blood Type Antibody Screen 09/18/19 09/18/19 09/18/19 21:15 21:15 21:15 WBC RBC Hgb Hct MCV MCH MCHC RDW Plt Count Neut % (Auto) Lymph % (Auto) [place] % (Auto) Eos % (Auto) Baso % (Auto) Neut # (Auto) Lymph # (Auto) [place] # (Auto) Eos # (Auto) Baso # (Auto) PT INR APTT Sodium Potassium Chloride Carbon Dioxide BUN Creatinine Estimated GFR BUN/Creatinine Ratio Glucose Calcium Magnesium Total Bilirubin AST ALT Alkaline Phosphatase Total Creatine Kinase 50 L CK-MB (CK-2) TNP CK-MB (CK-2) Rel Index TNP Troponin I < 0.012 Total Protein Albumin Globulin Albumin/Globulin Ratio Lipase 59 Chlamy pneumoniae PCR Adenovirus (PCR) B.parapertussis DNA PCR Coronavirus OC43 (PCR) Coronavirus HKU1 (PCR) Coronavirus 229E (PCR) Coronavirus NL63 (PCR) Human Metapneumovir PCR Influenza Type A (PCR) Influenza Type B (PCR) M. pneumoniae (PCR) Parainfluenza 1 (PCR) Parainfluenza 2 (PCR) Parainfluenza 3 (PCR) Parainfluenza 4 (PCR) RSV (PCR) Entero/Rhino (PCR) Blood Type O Positive Antibody Screen Negative 09/18/19 09/19/19 09/19/19 21:15 00:15 06:55 WBC 7.0 RBC 4.67 Hgb 14.5 Hct 41.4 MCV 88.7 MCH 31.0 MCHC 34.9 RDW 12.9 Plt Count 211 Neut % (Auto) 71.2 Lymph % (Auto) 13.8 L [place] % (Auto) 14.1 H Eos % (Auto) 0.3 L Baso % (Auto) 0.6 Neut # (Auto) 5000 Lymph # (Auto) 1000 L [place] # (Auto) 1000 H Eos # (Auto) 0 Baso # (Auto) 0 PT INR APTT Sodium Potassium Chloride Carbon Dioxide BUN Creatinine Estimated GFR BUN/Creatinine Ratio Glucose Calcium Magnesium 2.6 H Total Bilirubin AST ALT Alkaline Phosphatase Total Creatine Kinase CK-MB (CK-2) CK-MB (CK-2) Rel Index Troponin I Total Protein Albumin Globulin Albumin/Globulin Ratio Lipase Chlamy pneumoniae PCR Not detected Adenovirus (PCR) Detected H B.parapertussis DNA PCR Not detected Coronavirus OC43 (PCR) Not detected Coronavirus HKU1 (PCR) Not detected Coronavirus 229E (PCR) Not detected Coronavirus NL63 (PCR) Not detected Human Metapneumovir PCR Not detected Influenza Type A (PCR) Not detected Influenza Type B (PCR) Not detected M. pneumoniae (PCR) Not detected Parainfluenza 1 (PCR) Not detected Parainfluenza 2 (PCR) Not detected Parainfluenza 3 (PCR) Not detected Parainfluenza 4 (PCR) Not detected RSV (PCR) Not detected Entero/Rhino (PCR) Not detected Blood Type Antibody Screen 09/19/19 06:55 WBC RBC Hgb Hct MCV MCH MCHC RDW Plt Count Neut % (Auto) Lymph % (Auto) [place] % (Auto) Eos % (Auto) Baso % (Auto) Neut # (Auto) Lymph # (Auto) [place] # (Auto) Eos # (Auto) Baso # (Auto) PT INR APTT Sodium 139 Potassium 3.7 Chloride 99 Carbon Dioxide 30 BUN 18 Creatinine 0.80 Estimated GFR > 60.0 BUN/Creatinine Ratio 22.5 H Glucose 138 H Calcium 8.6 Magnesium Total Bilirubin AST ALT Alkaline Phosphatase Total Creatine Kinase CK-MB (CK-2) CK-MB (CK-2) Rel Index Troponin I Total Protein Albumin Globulin Albumin/Globulin Ratio Lipase Chlamy pneumoniae PCR Adenovirus (PCR) B.parapertussis DNA PCR Coronavirus OC43 (PCR) Coronavirus HKU1 (PCR) Coronavirus 229E (PCR) Coronavirus NL63 (PCR) Human Metapneumovir PCR Influenza Type A (PCR) Influenza Type B (PCR) M. pneumoniae (PCR) Parainfluenza 1 (PCR) Parainfluenza 2 (PCR) Parainfluenza 3 (PCR) Parainfluenza 4 (PCR) RSV (PCR) Entero/Rhino (PCR) Blood Type Antibody Screen Assessment & Plan Assessment & Plan narrative: Patient with probable upper GI bleed. Could be related to his vomiting or could be gastritis or other problem. Will perform an EGD. I've discussed the procedure with the patient including risks of bleeding perforation. I sure him we would be able to see his esophagus to see if there's a problem there causing his nausea with epigastric discomfort.
--- NOTE | 2019-09-19 16:02 | PM.PREOP ---
Pre-operative Note Interval Note History & Physical reviewed/Exam performed by Physician: Yes Changes to H&P: No
--- NOTE | 2019-09-19 16:28 | PM.OP.ENDO ---
Operative Date/Time/Diagnoses Date of procedure: 09/19/19 Time of procedure: 16:28 Pre-op diagnosis: Upper GI bleed Post-op diagnosis: same (Esophagitis with ulcers, multiple gastric ulcers, multiple duodenal bulb ulcers.) Procedure & Clinicians Study performed: EGD with cold biopsy Same procedure as scheduled: Yes Indications: Determine cause of upper GI bleed/melena Surgeon: Antonio Howard Procedure Notes SCOAP/Timeout: Perform Procedure in detail: The patient was placed supine on the stretcher and underwent deep sedation/general IV anesthesia with monitored anesthesia care. Topical anesthetic was applied to the oropharynx. Bite block was inserted and the scope was advanced through it into the esophagus the esophagus was normal until a reached the distal esophagus where there were multiple ulcers and fibrinous material suggesting the possibility of viral or yeast infection. The scope was advanced into the stomach. Initially it appeared that the patient had a possible hiatal hernia. However this was not confirmed on retroflexed view. These stomach insufflated well. There were numerous ulcers scattered about the stomach. These were principally in the antrum and the proximal stomach/cardia. The body was relatively spared. The pyloric channel was patent but the duodenal bulb also contain ulcers. There was no blood associated with any of these areas and there was no ongoing bleeding or visible vessels. The 2nd and 3rd parts of the duodenum were normal in appearance. The scope was brought back into the stomach the scope was brought into the esophagus and biopsies were taken there as well. These are principally in the distal esophagus near the GE junction. The scope was then removed and the patient tolerated the procedure well. I saw no evidence of varices. Scope withdrawal time: Not applicable Sedation minutes: 0 (Mac/general) Findings: duodenal ulcer, gastric ulcer and other findings (Esophagitis with ulcers) Specimen(s): other (Gastric biopsies and esophageal biopsies) Complications: none Post-procedure Recommendations: Continue medication(s) (Proton pump inhibitor) Follow up: months (3months after treatment with double does proton pump inhibitor. Consider addition of antibiotic to treat H pylori) Disposition: PACU
--- NOTE | 2019-09-19 17:11 | SUR.PHASEI ---
Patient taken back to room with all belongings. Report given to receiving RN and patient left in stable condition with receiving RN at bedside
--- NOTE | 2019-09-19 18:14 | PM.PN.1 ---
Subjective Subjective Date Patient Seen: 09/19/19 Interval history: 54-year-old male admitted to the hospital for intractable nausea and vomiting. Patient also had a remote history of melanotic stools. He underwent upper endoscopy today which was remarkable for esophagitis with ulcers involving the esophagus, gastric area, and duodenal bulb. Patient does report a history of migraine headaches. He states he takes Excedrin 2-3 tablets 5 times per year. He denies using ibuprofen Advil Motrin or Pepto-Bismol. Given the severity of ulceration concern regarding H pylori is raised. Exam Vital Signs (past 8 hours): - 09/19/19 11:43 09/19/19 15:49 09/19/19 16:32 Temperature 98.9 F 99.7 F H 98.0 F Pulse Rate 84 62 87 Respiratory Rate 16 16 27 H Blood Pressure 119/74 104/72 88/63 L Pulse Oximetry 96 95 91 09/19/19 16:36 09/19/19 16:42 09/19/19 16:46 Temperature 98 F 98.0 F 98.0 F Pulse Rate 78 81 78 Respiratory Rate 23 23 11 L Blood Pressure 96/72 111/73 108/77 Pulse Oximetry 93 94 94 09/19/19 17:00 Temperature 98.8 F Pulse Rate 70 Respiratory Rate 17 Blood Pressure 118/76 Pulse Oximetry 96 Oxygen Delivery Method Room Air Oxygen Flow Rate 0 Narrative Exam Narrative: Pleasant gentleman resting comfortably in no obvious distress Lungs: Clear to auscultation Cardiac exam: Regular rate and rhythm normal S1-S2 Abdomen: Soft nontender nondistended Extremities: No edema Objective Labs Result Diagrams: 09/19/19 06:55 09/19/19 06:55 Labs: Laboratory Results - last 24 hr 09/18/19 09/18/19 09/18/19 21:15 21:15 21:15 WBC 9.3 RBC 5.14 Hgb 15.9 Hct 45.6 MCV 88.8 MCH 31.0 MCHC 34.9 RDW 13.2 Plt Count 209 Neut % (Auto) 79.7 H Lymph % (Auto) 7.9 L [place] % (Auto) 9.6 Eos % (Auto) 0.3 L Baso % (Auto) 2.5 H Neut # (Auto) 7400 H Lymph # (Auto) 700 L [place] # (Auto) 900 Eos # (Auto) 0 Baso # (Auto) 200 H PT 12.6 INR 1.1 APTT 33 Sodium 138 Potassium 3.6 Chloride 97 L Carbon Dioxide 30 BUN 19 Creatinine 0.80 Estimated GFR > 60.0 BUN/Creatinine Ratio 23.8 H Glucose 136 H Calcium 9.1 Magnesium Total Bilirubin 0.6 AST 32 ALT 29 Alkaline Phosphatase 87 Total Creatine Kinase CK-MB (CK-2) CK-MB (CK-2) Rel Index Troponin I Total Protein 7.9 Albumin 4.4 Globulin 3.5 Albumin/Globulin Ratio 1.3 Lipase Chlamy pneumoniae PCR Adenovirus (PCR) B.parapertussis DNA PCR Coronavirus OC43 (PCR) Coronavirus HKU1 (PCR) Coronavirus 229E (PCR) Coronavirus NL63 (PCR) Human Metapneumovir PCR Influenza Type A (PCR) Influenza Type B (PCR) M. pneumoniae (PCR) Parainfluenza 1 (PCR) Parainfluenza 2 (PCR) Parainfluenza 3 (PCR) Parainfluenza 4 (PCR) RSV (PCR) Entero/Rhino (PCR) Blood Type Antibody Screen 09/18/19 09/18/19 09/18/19 21:15 21:15 21:15 WBC RBC Hgb Hct MCV MCH MCHC RDW Plt Count Neut % (Auto) Lymph % (Auto) [place] % (Auto) Eos % (Auto) Baso % (Auto) Neut # (Auto) Lymph # (Auto) [place] # (Auto) Eos # (Auto) Baso # (Auto) PT INR APTT Sodium Potassium Chloride Carbon Dioxide BUN Creatinine Estimated GFR BUN/Creatinine Ratio Glucose Calcium Magnesium Total Bilirubin AST ALT Alkaline Phosphatase Total Creatine Kinase 50 L CK-MB (CK-2) TNP CK-MB (CK-2) Rel Index TNP Troponin I < 0.012 Total Protein Albumin Globulin Albumin/Globulin Ratio Lipase 59 Chlamy pneumoniae PCR Adenovirus (PCR) B.parapertussis DNA PCR Coronavirus OC43 (PCR) Coronavirus HKU1 (PCR) Coronavirus 229E (PCR) Coronavirus NL63 (PCR) Human Metapneumovir PCR Influenza Type A (PCR) Influenza Type B (PCR) M. pneumoniae (PCR) Parainfluenza 1 (PCR) Parainfluenza 2 (PCR) Parainfluenza 3 (PCR) Parainfluenza 4 (PCR) RSV (PCR) Entero/Rhino (PCR) Blood Type O Positive Antibody Screen Negative 09/18/19 09/19/19 09/19/19 21:15 00:15 06:55 WBC 7.0 RBC 4.67 Hgb 14.5 Hct 41.4 MCV 88.7 MCH 31.0 MCHC 34.9 RDW 12.9 Plt Count 211 Neut % (Auto) 71.2 Lymph % (Auto) 13.8 L [place] % (Auto) 14.1 H Eos % (Auto) 0.3 L Baso % (Auto) 0.6 Neut # (Auto) 5000 Lymph # (Auto) 1000 L [place] # (Auto) 1000 H Eos # (Auto) 0 Baso # (Auto) 0 PT INR APTT Sodium Potassium Chloride Carbon Dioxide BUN Creatinine Estimated GFR BUN/Creatinine Ratio Glucose Calcium Magnesium 2.6 H Total Bilirubin AST ALT Alkaline Phosphatase Total Creatine Kinase CK-MB (CK-2) CK-MB (CK-2) Rel Index Troponin I Total Protein Albumin Globulin Albumin/Globulin Ratio Lipase Chlamy pneumoniae PCR Not detected Adenovirus (PCR) Detected H B.parapertussis DNA PCR Not detected Coronavirus OC43 (PCR) Not detected Coronavirus HKU1 (PCR) Not detected Coronavirus 229E (PCR) Not detected Coronavirus NL63 (PCR) Not detected Human Metapneumovir PCR Not detected Influenza Type A (PCR) Not detected Influenza Type B (PCR) Not detected M. pneumoniae (PCR) Not detected Parainfluenza 1 (PCR) Not detected Parainfluenza 2 (PCR) Not detected Parainfluenza 3 (PCR) Not detected Parainfluenza 4 (PCR) Not detected RSV (PCR) Not detected Entero/Rhino (PCR) Not detected Blood Type Antibody Screen 09/19/19 06:55 WBC RBC Hgb Hct MCV MCH MCHC RDW Plt Count Neut % (Auto) Lymph % (Auto) [place] % (Auto) Eos % (Auto) Baso % (Auto) Neut # (Auto) Lymph # (Auto) [place] # (Auto) Eos # (Auto) Baso # (Auto) PT INR APTT Sodium 139 Potassium 3.7 Chloride 99 Carbon Dioxide 30 BUN 18 Creatinine 0.80 Estimated GFR > 60.0 BUN/Creatinine Ratio 22.5 H Glucose 138 H Calcium 8.6 Magnesium Total Bilirubin AST ALT Alkaline Phosphatase Total Creatine Kinase CK-MB (CK-2) CK-MB (CK-2) Rel Index Troponin I Total Protein Albumin Globulin Albumin/Globulin Ratio Lipase Chlamy pneumoniae PCR Adenovirus (PCR) B.parapertussis DNA PCR Coronavirus OC43 (PCR) Coronavirus HKU1 (PCR) Coronavirus 229E (PCR) Coronavirus NL63 (PCR) Human Metapneumovir PCR Influenza Type A (PCR) Influenza Type B (PCR) M. pneumoniae (PCR) Parainfluenza 1 (PCR) Parainfluenza 2 (PCR) Parainfluenza 3 (PCR) Parainfluenza 4 (PCR) RSV (PCR) Entero/Rhino (PCR) Blood Type Antibody Screen Assessment & Plan Assessment & Plan narrative: Impression 1. Recent GI bleed secondary to esophagitis, esophageal ulcers, gastric ulcers, duodenal bulb ulcers -continue PPI -await biopsy -rule out H pylori -no evidence of blood loss anemia at this time 2. Dehydration -continue IV hydration 3. Migraine headache -no further Excedrin -consider outpatient neurology evaluation Anticipate discharge home tomorrow Quality VTE Deep Vein Thrombosis/Pulmonary Embolism Present on Admission: No
[2019-09-19] MEDS: CLARITHROMYCIN 500 MG TABLET PO (21:35)
[2019-09-19] MEDS: AMOXICILLIN 250 MG CAPSULE 1000 MG PO (21:35)
[2019-09-20 00:10] VITALS: BP 121/75; PULSE 80; RESP 16; TEMP 37.4; O2SAT 94
[2019-09-20] MEDS: ONDANSETRON 4 MG/2 ML INJ IV ×2 (04:59→11:35)
[2019-09-20 05:45] VITALS: BP 116/68; RESP 16; TEMP 37.2; O2SAT 92
--- NOTE | 2019-09-20 06:30 | PC.NURSE ---
Pt doing well. Complained of nausea overnight, relieved with Zofran
[2019-09-20 06:40] LABS: Add Manual Diff / Slide Review NO; Basophils Absolute Auto 0 /uL (0-100); Basophils Percent Auto 0.4 % (0-2); Eosinophils Absolute Auto 100 /uL (0-450); Hemoglobin 13.6 g/dL (13.5-17.5); Lymphocytes Absolute Auto 1300 /uL (1100-4500); Lymphocytes Percent Auto 18.3 % (25-40); Mean Corpuscular Hemoglobin 30.9 PG (26-34); Mean Corpuscular Volume 88.4 fL (80-100); Monocytes Absolute Auto 1000 /uL (0-900); Monocytes Percent Auto 14.1 % (3-14); Neutrophils Absolute Auto 4800 /uL (1500-7000); Neutrophils Percent Auto 66.2 % (50-75); Platelet Count 232 X10^3/uL (150-400); Red Blood Cell Count 4.41 X10^6/uL (4.5-5.9); Red Cell Distribution Width 13.2 % (11.6-14.8); White Blood Cell Count 7.2 X10^3/uL (4.5-11.0)
[2019-09-20 06:45] LABS: BUN Creatinine Ratio 14.4 (6-22); Blood Urea Nitrogen 13 mg/dL (9-20); Calcium 8.6 mg/dL (8.4-10.2); Carbon Dioxide 30 mmol/L (22-32); Chloride 100 mmol/L (98-107); Estimated Glomerular Filt Rate > 60.0 mL/min (>60); Glucose 103 mg/dL (70-100); HEMOLYSIS < 15 (0-50); Potassium 3.9 mmol/L (3.4-5.1); Sodium 138 mmol/L (137-145)
[2019-09-20] MEDS: SODIUM CHLORIDE 0.9% FLUSH 10 ML IV ×2 (08:31→11:35)
[2019-09-20] MEDS: CLARITHROMYCIN 500 MG TABLET PO (08:31)
[2019-09-20] MEDS: PANTOPRAZOLE 20 MG TABLET 40 MG PO (08:31)
[2019-09-20] MEDS: AMOXICILLIN 250 MG CAPSULE 1000 MG PO (08:32)
--- NOTE | 2019-09-20 08:59 | P.DS_ITS ---
History of Present Illness History of Present Illness Date Patient Seen: 09/20/19 Chief complaint: dry heaves for days Narrative: Mr. Jas Benton is a 54-year-old male patient with a remote history of high alcohol intake but no other current medical problems who presents to the ER with intractable nausea vomiting. The patient states his symptoms began 6 days ago with nausea vomiting, epigastric pain, fevers and chills. The patient's symptoms persisted developing melena for the last couple of days. He states he has been unable to keep any fluid or food down. He has associated headache, nasal congestion and reports sore throat. He has had no hematemesis or coffee-ground emesis does report having melanotic stools. He describes his pain as burning epigastrium without radiation at 4/10 that worsens to 7/10 with vomiting. He describes symptoms worsening when he lays flat and what sounds to be possible esophageal spasms. The patient indicates his brothers are also ill with similar symptoms. The patient denies chest pain or palpitations and has no shortness of breath cough or wheezing. He reports no diarrhea but has not eaten much and has small black stools. Reports no urinary symptoms and has nocturia approximately 1 time nightly. He is fully independent in his ADLs requires no assistive devices. Upon arrival to the ER the patient has a temperature of 98.1?, heart rate 93, blood pressure 140/91, respirations 16 saturating 99% on room air. A chest x- ray is obtained which did advise retrocardiac mild opacity is questionable for pneumonia versus possible aspiration. On laboratory analysis the patient has a normal white count at 9.3, hemoglobin of 15.9, hematocrit of 45.6 and platelets 209. He has an MCV of 88. On coagulation has a PT of 12.6 with an INR 1.1 and PTT of 33. His chemistries revealed normal electrolytes with a BUN of 19 and creatinine of 0.8. His magnesium is 2.6. He has a bilirubin of 0.6, AST of 32, ALT of 29 and alkaline phosphatase of 87. His nonfasting glucose is 136. He has negative troponin at less than 0.012. A type and screen is obtained. Dr. Howard is contacted through the ER and has agreed to consult. The patient is admitted to the medicine service for intractable nausea vomiting with likely gastritis and gastrointestinal bleeding. Discharge Providers Provider Date of admission: 09/18/19 22:54 Discharge Date: 09/20/19 Consults: 09/18/19 23:51 Consult to Dietitian, Adult Routine Comment: Reason For Exam: Intractable nausea vomiting, GI bleed Consult to Discharge Planning Routine Comment: Consult to Physician Routine Comment: Consulting Provider: Antonio Howard Reason for consultation: GIB with melena Has provider been notified: Yes Discharge provider: Dedra Reina MD Summary Hospital Course Discharge Diagnosis: 1. Upper GI bleed 2. Esophagitis with ulcers, multiple gastric ulcers, multiple duodenal bulb ulcers 3. Probable H pylori, biopsies pending 4. Remote history of alcoholism Hospital Course: Patient is a 54-year-old male admitted to the hospital for intractable nausea and vomiting and associated melena. He underwent upper endoscopy which revealed esophagitis with ulcers including multiple gastric and duodenal bulb ulcers. Biopsies were obtained. Pathology is still pending. Given the severity of the ulceration the patient was empirically treated for H pylori. He continued to has nausea but no further melanotic stool or vomiting. Patient's hemoglobin and hematocrit remained stable. He did not require transfusion. Patient was deemed appropriate for discharge and arrangements were made for him to be discharged home. Patient does not have a primary care physician and will be referred to [facility]. He will follow-up with Dr. Howard and 3 weeks for repeat endoscopy. Status at Discharge Cognitive/behavioral status at discharge: oriented Functional status at discharge: independent ambulation Overall status at discharge: patient is back to baseline Time Spent with Patient Time spent: Less than 30 minutes Exam Vital Signs (past 8 hours): - 09/20/19 05:45 Temperature 98.9 F Respiratory Rate 16 Blood Pressure 116/68 Pulse Oximetry 92 Oxygen Delivery Method Room Air Oxygen Flow Rate 0 Narrative Exam Narrative: Pleasant gentleman in no obvious distress Lungs: Clear to auscultation Cardiac exam: Regular rate rhythm normal S1-S2 Abdomen: Soft nontender nondistended Extremities: No edema Objective Labs Result Diagrams: 09/20/19 05:50 09/20/19 05:50 Labs: Laboratory Results - last 24 hr 09/20/19 09/20/19 05:50 05:50 WBC 7.2 RBC 4.41 L Hgb 13.6 Hct 39.0 L MCV 88.4 MCH 30.9 MCHC 35.0 RDW 13.2 Plt Count 232 Neut % (Auto) 66.2 Lymph % (Auto) 18.3 L [place] % (Auto) 14.1 H Eos % (Auto) 1.0 L Baso % (Auto) 0.4 Neut # (Auto) 4800 Lymph # (Auto) 1300 [place] # (Auto) 1000 H Eos # (Auto) 100 Baso # (Auto) 0 Sodium 138 Potassium 3.9 Chloride 100 Carbon Dioxide 30 BUN 13 Creatinine 0.90 Estimated GFR > 60.0 BUN/Creatinine Ratio 14.4 Glucose 103 H Calcium 8.6 Discharge Plan Discharge Plan Patient Disposition: Home Discharge orders & Medications Prescriptions: New pantoprazole 20 mg Tablet,Delayed Release (Dr/Ec) 40 mg PO BID 30 Days Qty: 120 RF: 0 amoxicillin 250 mg Capsule 1,000 mg PO BID 10 Days Qty: 80 RF: 0 ondansetron HCl [Zofran] 4 mg tablet 4 mg PO Q8H Qty: 20 RF: 0 levofloxacin 500 mg tablet 500 mg PO DAILY Qty: 10 RF: 0 Follow up/Referrals: Dedra Reina MD [Physician] - Antonio Howard MD [Physician] - Discharge Health Status Care Plan Goals: New patient appointment with [facility] for Primary Care Diet/Activity/Treatments Diet comment: diet as tolerated Activity: as tolerated Visit Report/Discharge Packet Instructions: DI for Gastric Ulcer, Gastrointestinal Bleeding, Pantoprazole, DI for Esophagitis Visit Report Forms: Patient Portal/API, Stroke Signs & Symptoms Discharge Data Attending Provider: Brandon Lobo Admit Date/Time: 09/18/19 22:54 Quality VTE Deep Vein Thrombosis/Pulmonary Embolism Present on Admission: No
[2019-09-20 09:04] VITALS: BP 106/75; PULSE 84; RESP 16; TEMP 37.4; O2SAT 94
--- NOTE | 2019-09-20 09:07 | CM.DANOTE ---
DCP/Assessment: Reviewed chart. Patient is a 54yr old male admitted to [facility] with intractable nausea/vomiting. No PCP listed. Primary Payor is 1)[facility] [employer] 2)Medicaid. Met with patient explained CM/SW role. Patient continues with complaints of nausea. Patient underwent EGD yesterday which patient reports showed ulcers. Currently patient on clear liquid diet. Patient reports that he plans to return home when medically stable. Patient resides with family and roommates. Patient has h/o ETOH abuse which he says that he has not drank for five years. Patient appears flat during interview and somewhat drowsy. Encouraged patient to start thinking about discharge and asked RN about making sure patient out of bed today. P: Home when stable. JESSICA Victoria Discharge Planning/Care Management Advanced directive, confirm from FAMILY Start: 09/19/19 00:45 Freq: Q24H Status: Active Protocol: Document 09/19/19 00:45 KA (Rec: 09/19/19 01:08 KA [id number]) Advance Directive, confirm on record Time 12:00 Person contacted Patient Copy received No Copy received No Advanced directive available on record No CM Discharge Assessment Start: 09/20/19 08:51 Freq: Status: Active Protocol: Document 09/20/19 08:51 KJS (Rec: 09/20/19 09:07 KJS [id number]) Discharge Planning Assessment Assigned Mail Distribution Clerk JESSICA Victoria Contact Information GISSEL Ryan (family/other) Advance Directives? No History Provided By Patient,Medical Record Prior Living Arrangements House Household Members family,friend(s) Independent with ADL's Yes Is patient alert and oriented? Yes Caregiver for Another No Barriers to Discharge No Discharge Plan Home Transportation Arrangement Patient reports that either his brother or sister can pick him up. Additional Comment None requested Whiteboard Updated in Patient Room with Yes name and ext. # of Mail Distribution Clerk Review Status In Process Next Review Type Continued Stay Review Discharge Planning/Care Management Advanced directive, confirm from FAMILY Start: 09/19/19 00:45 Freq: Q24H Status: Active Protocol: Document 09/19/19 00:45 KA (Rec: 09/19/19 01:08 KA [id number]) Advance Directive, confirm on record Time 12:00 Person contacted Patient Copy received No Copy received No Advanced directive available on record No CM Discharge Assessment Start: 09/20/19 08:51 Freq: Status: Active Protocol: Document 09/20/19 08:51 RANGEL (Rec: 09/20/19 09:07 [email or web address] [id number]) Discharge Planning Assessment Assigned Mail Distribution Clerk JESSICA Vcitoria Contact Information GISSEL Ryan (family/other) Advance Directives? No History Provided By Patient,Medical Record Prior Living Arrangements House Household Members family,friend(s) Independent with ADL's Yes Is patient alert and oriented? Yes Caregiver for Another No Barriers to Discharge No Discharge Plan Home Transportation Arrangement Patient reports that either his brother or sister can pick him up. Additional Comment None requested Whiteboard Updated in Patient Room with Yes name and ext. # of Mail Distribution Clerk Review Status In Process Next Review Type Continued Stay Review
[2019-09-20 13:00] VITALS: BP 113/72; PULSE 73; TEMP 37.1; O2SAT 94
--- NOTE | 2019-09-20 13:39 | PC.NURSE ---
Day Shift- Pt tolerated small amount of clear liquid diet. PRN Zofran given at 1135 per pt request with good effect. Mild to moderate intermittent nausea. No belching, burping, emesis. Tolerated full liquid diet for lunch having soup. Awaiting his friend to pick him up for discharge. Discharge summary packet reviewed with pt around 1320. Pt aware of both follow up appointments and prescriptions are to be picked up at [facility]. No voiced concerns. Pt has a call to his friend to pick him up for discharge. Pt states his brother is now not coming to pick him up. At 1440, pt stated he was still trying to get a hold of his friend for discharge.
[2019-09-20 13:55] VITALS: BMI 21.2
[2019-09-22 14:54] LABS: Urea Breath Test >18YRS NOT DETECTED
== END 2019-09-20 15:40 | disposition home or self-care (01) ==
LOC: ED 22:54 → AC 09-19 07:38
PROVIDERS: Internal Medicine; Specialist; Admitting Provider Nurse Practitioner Adult Health; Emergency Provider Emergency Medicine; Visit Provider Nurse Practitioner Adult Health
PROC: 0DJ08ZZ Inspection of Upper Intestinal Tract, Via Natural or Artificial Opening Endoscopic (ICD-10-PCS; CPT 43235; principal; 2019-09-19 14:15)
DX: K22.10 Ulcer of esophagus without bleeding (principal); R11.2 Nausea with vomiting, unspecified; R19.7 Diarrhea, unspecified; K92.1 Melena; E86.0 Dehydration; Z23 Encounter for immunization; Z87.891 Personal history of nicotine dependence; G43.909 Migraine, unspecified, not intractable, without status migrainosus; K26.9 Duodenal ulcer, unspecified as acute or chronic, without hemorrhage or perforation; K25.9 Gastric ulcer, unspecified as acute or chronic, without hemorrhage or perforation; F10.21 Alcohol dependence, in remission
CPT/HCPCS: 43239; 36415; 74022; 80048; 80053; 82550; 83013; 83690; 83735; 84484; 85025; 85610; 85730; 86850; 86900; 86901; 87633; 90471; 90656; 93005; 96361; 96374; 96375; 96376; 99218; 99284; G0378; C9113; J2405; J2704; J3010; Q2038